=== PATIENT | female | born 1945 | race Caucasian/White ===

== ENCOUNTER → 2016-12-29 | Outpatient (CLI) | payer MEDICARE, BC ==
[2015-11-15 17:24] VITALS: BP 146/46
[~2016-12-29] MED LIST: ALBU8.5H6 IH; AMOX1TAB61 PO; CHOL100099 PO; CYCL1DRO OP; DESL5TAB PO; FLUT1DIS5 IH; HYDR-2762 PO; LEVO500T59 PO; LIDO700A4 TD; LISI-338 PO; METH2.5T PO; MILN100T PO; NEBI5TAB2 PO; PRAV80TA2 PO; PRED-220 PO; PREG150C PO; RABE20TA18 PO; XOPENEX0.63 MG/3 NEB; ZOLP10TA PO; trental PO
--- NOTE | 2016-12-29 14:52 | RAD ---
Chest, 2 views, 12/29/2016: History: Cough and congestion Comparison is made to a study from 08/17/2015. The heart size and pulmonary vascularity are normal. There is calcific plaquing of the aorta. There is a calcified granuloma in the right middle lobe. No pulmonary infiltrates are seen. There is no evidence of pleural fluid. IMPRESSION: No acute cardiopulmonary abnormality is detected.
== END | disposition home or self-care (01) ==
LOC: DXRADRC 14:06
PROVIDERS: ATTEND Family Medicine
DX: J06.9 Acute upper respiratory infection, unspecified (principal); R09.89 Other specified symptoms and signs involving the circulatory and respiratory systems
CPT/HCPCS: 71020

== ENCOUNTER 2017-01-05 14:41 | Emergency (ER) | payer MEDICARE, BC ==
[2017-01-05] MEDS ORDERED: IV NORMAL SALINE 1,000ML 1,000 ML IV SCH (15:46)
--- NOTE | 2017-01-05 16:07 | PHYS DOC ---
General Chief Complaint: DIZZY/LIGHT HEADED Stated Complaint: DIZZY,WEAKNESS Time Seen by MD: 15:46 Source: patient, old records Exam Limitations: no limitations Problems: History of Present Illness Initial Comments Patient is a 71-year-old female who comes to the ED complaining of dizziness and weakness. Patient states that she was diagnosed by her primary care physician Dr. Jo with pneumonia on December 29. She states at that time her pulse ox was 88% on room air and that she refused inpatient admission on that day. She was sent home with prescriptions for prednisone, Tussionex, "an inhaler and an antibiotic." She cannot recall the name of the antibiotic but does state its a white oval "horse pill" that she takes once daily. I mentioned Levaquin she thinks that sounds familiar but is uncertain. Patient states that she continues to be weak and when she tries to stand and get up and active she feels unsteady and dizzy however her symptoms resolve almost instantaneously when patient sits or lies down. Patient feels she is dehydrated, states she's had decreased urination and history of hypovolemia in the past. She denies chest pain or trouble breathing nausea vomiting diaphoresis or arm or neck symptoms. States her breathing has improved greatly since she began treatment for pneumonia and she is very confused as to why she is so weak and dizzy when she gets up. No other focal neurologic deficits no vision changes no difficulty swallowing. ED vital signs: 98.6, 95, 22, 129/60, 96% room air Timing/Duration: 1 week, constant Severity: moderate Modifying Factors: worse with movement, improves with rest Associated Symptoms: cough, loss of appetite, malaise, weakness, other Allergies: Coded Allergies: shellfish derived (Verified Allergy, Intermediate, 09/15/14) Past Medical History Medical History: arthritis (rheumatoid), fibromyalgia, GERD, heart disease, high cholesterol, hypertension, vascular disease, other (anemia, COPD, fibromyalgia) Surgical History: coronary bypass surgery, other Family History Significant Family History: cancer, vascular disease Social History Smoker: quit greater than 1 year Alcohol: none Drugs: none Review of Systems Constitutional: denies chills, denies diaphoresis, denies fever, malaise, weakness Respiratory: see HPI Cardiovascular: denies chest pain, denies edema, denies palpitations, denies syncope Gastrointestinal: denies abdominal pain, denies diarrhea, denies nausea, denies vomiting Genitourinary: see HPI Musculoskeletal: denies back pain, denies joint swelling, denies neck pain Psychiatric/Neurological: see HPI, denies headache, denies numbness, denies paresthesia, denies seizure, denies tingling Physical Exam General Appearance: WD/WN, no apparent distress Eyes: bilateral eye normal inspection, bilateral eye PERRL, bilateral eye EOMI Ear, Nose, Throat: hearing grossly normal, normal ENT inspection, normal pharynx (dry mucous membranes) Neck: non-tender, supple Respiratory: other (faint wheeze bilaterally without localized rales or rhonchi , good air movement no respiratory distress chest is nontender.) Cardiovascular: normal peripheral pulses, regular rate, rhythm Gastrointestinal: normal bowel sounds, non tender, soft Back: no CVA tenderness, no vertebral tenderness Extremities: normal range of motion, non-tender, normal inspection Neurologic/Psychiatric: 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 Interpreted by me WBC 14.4, hemoglobin 10.5 normocytic, creatinine 1.4, BUN 27 (h/o anemia) 1714: Patient states she is feeling much better with IV hydration. I had her stand up and walk around in her exam room for a short time, she denied any dizziness or gait instability. Family members present state patients looking much better as well. She denies new or progressive symptoms and expresses agreement and understanding the treatment plan. Departure Time of Disposition: 17:15 Disposition: 01 HOME, SELF-CARE Diagnosis: hypovolemia, pneumonia NOS Condition: IMPROVED Patient Instructions: Dehydration, Adult, [id number] Additional Instructions: Rest, no strenuous activity. Request assistance when standing and walking for the next 24 hours. Aggressive hydration with Gatorade or water. Continue current medications. Follow-up with your doctor next week for recheck. Return to the ED with new or changing symptoms. CLARKE GUERRA DO Jan 05, 2017 16:07
[2017-01-05] MEDS ORDERED: IPRATRPIUM/ALBUTEROL 0.5/2.5MG 3 ML NEBU. NEB ONE (16:15)
[2017-01-05 16:22] LABS: BASO % 0 % (0-3); EOS # 0.2 x10^3/uL (0.0-0.7); EOS % 1 % (0-3); HEMATOCRIT 32.9 % (36.0-47.0); HEMOGLOBIN 10.5 g/dL (12.0-15.5); LYMPH % 14 % (24-48); MEAN CORPUSCULAR HEMOGLOBIN 26 pg (25-35); MEAN CORPUSCULAR HGB CONC 32 g/dL (31-37); MEAN CORPUSCULAR VOLUME 80 fL (79-100); MONO # 0.4 x10^3/uL (0.0-1.1); MONO % 3 % (0-9); NEUT # 11.9 x10^3uL (1.8-7.7); NEUT % 82 % (31-73); PLATELET COUNT 297 x10^3/uL (140-400); WHITE BLOOD COUNT 14.4 x10^3/uL (4.0-11.0)
[2017-01-05 16:52] LABS: CALCIUM 8.4 mg/dL (8.5-10.1); CREATININE 1.4 mg/dL (0.6-1.0); GFR 37.1; POTASSIUM 4.2 mmol/L (3.5-5.1)
[2017-01-05 17:58] VITALS: BP 178/46
[2017-01-05 22:40] LABS: ANISOCYTOSIS MOD; OVALOCYTES OCC; PLT ESTIMATE ADEQUATE (ADEQUATE); POLYCHROMASIA SLIGHT
--- NOTE | 2017-01-07 06:43 | EKG ---
[address] [address] Test Date: 2017-01-05 Test Time: 15:04:53 Pat Name: WALESKA DEL CASTILLO Department: Room: Gender: F Women'S Swim Coach: AMARIS : 1945 Requested By: CLARKE GUERRA Order Number: [id number] Reading MD: Loyd Lange Measurements Intervals [place] Rate: 93 P: 42 CA: 156 QRS: 10 QRSD: 72 T: 64 QT: 350 QTc: 438 Interpretive Statements SINUS RHYTHM QRS(T) CONTOUR ABNORMALITY CANNOT RULE OUT ANTEROSEPTAL MYOCARDIAL DAMAGE T ABNORMALITY IN HIGH LATERAL LEADS RI6.01 Unconfirmed report Compared to ECG 11/15/2015 15:20:46 T-wave abnormality now present Electronically Signed On 01-10-2017 9:33:01 CDT by Loyd Lange
== END 2017-01-05 18:05 | disposition home or self-care (01) ==
LOC: ER 14:41
DX: J18.9 Pneumonia, unspecified organism (principal); E86.1 Hypovolemia; M79.7 Fibromyalgia; M19.90 Unspecified osteoarthritis, unspecified site; K21.9 Gastro-esophageal reflux disease without esophagitis; E78.00 Pure hypercholesterolemia, unspecified; I11.9 Hypertensive heart disease without heart failure; Z86.2 Personal history of diseases of the blood and blood-forming organs and certain disorders involving the immune mechanism; Z95.1 Presence of aortocoronary bypass graft; Z91.013 Allergy to seafood
CPT/HCPCS: 36415; 80048; 83880; 84484; 85008; 85027; 94640; 96360; 99285; J7620; J7030

== ENCOUNTER → 2017-01-11 | Outpatient (CLI) | payer MEDICARE, BC ==
[2017-01-05 17:58] VITALS: BP 178/46
--- NOTE | 2017-01-11 12:07 | RAD ---
Chest, 2 views, 01/11/2017: History: Shortness of breath, recent pneumonia Comparison is made to a study from 12/29/2016. The heart size and pulmonary vascularity are normal. There is calcific plaquing of the aorta. Calcified granulomata are present in the lower chest bilaterally. No acute infiltrate is seen. There is no evidence of pleural fluid. IMPRESSION: No acute cardiopulmonary abnormality is detected.
== END | disposition home or self-care (01) ==
LOC: DXRADRC 11:38
PROVIDERS: ATTEND Family Medicine
DX: R06.02 Shortness of breath (principal); Z87.01 Personal history of pneumonia (recurrent)
CPT/HCPCS: 71020

== ENCOUNTER 2017-02-05 12:04 | Emergency (ER) | payer MEDICARE, BC ==
[~2017-02-05] VITALS: Ht 165.1 cm; Wt 88.5 kg
--- NOTE | 2017-02-05 12:24 | EKG ---
[address] [address] Test Date: 2017-02-05 Test Time: 12:21:20 Pat Name: WALESKA DEL CASTILLO Department: Room: Gender: F Patient Biller: : 1945 Requested By: CARMEN SPRAGUE Order Number: [id number] Reading MD: Measurements Intervals [place] Rate: 100 P: 43 ND: 150 QRS: 11 QRSD: 70 T: 33 QT: 350 QTc: 455 Interpretive Statements SINUS RHYTHM NON SPECIFIC T ABNORMALITY RI6.01 Unconfirmed report No previous ECG available for comparison
[2017-02-05 12:45] LABS: BASO # 0.1 x10^3/uL (0.0-0.2); BASO % 1 % (0-3); EOS # 0.1 x10^3/uL (0.0-0.7); EOS % 1 % (0-3); HEMATOCRIT 30.5 % (36.0-47.0); HEMOGLOBIN 9.6 g/dL (12.0-15.5); LYMPH # 1.7 x10^3/uL (1.0-4.8); LYMPH % 14 % (24-48); MEAN CORPUSCULAR HEMOGLOBIN 27 pg (25-35); MEAN CORPUSCULAR HGB CONC 31 g/dL (31-37); MEAN CORPUSCULAR VOLUME 87 fL (79-100); MONO # 0.7 x10^3/uL (0.0-1.1); MONO % 6 % (0-9); NEUT # 10.1 x10^3uL (1.8-7.7); NEUT % 79 % (31-73); PLATELET COUNT 335 x10^3/uL (140-400); RED BLOOD COUNT 3.52 x10^6/uL (3.50-5.40); RED CELL DISTRIBUTION WIDTH 25.8 % (11.5-14.5); WHITE BLOOD COUNT 12.7 x10^3/uL (4.0-11.0)
--- NOTE | 2017-02-05 13:03 | RAD ---
CT of the head without contrast, 02/05/2017: History: Syncope Comparison is made to a study from 11/15/2015. There is mild cerebral atrophy. The ventricles are mildly prominent on a compensatory basis. There is no shift of the midline structures. There is no evidence of acute intracranial hemorrhage or mass effect. IMPRESSION: No acute intracranial abnormality is detected with no significant change since 11/15/2015. PQRS Compliance Statement: One or more of the following individualized dose reduction techniques were utilized for this examination: 1. Automated exposure control 2. Adjustment of the mA and/or kV according to patient size 3. Use of iterative reconstruction technique
[2017-02-05 13:05] LABS: ALBUMIN 2.9 g/dL (3.4-5.0); ALBUMIN/GLOBULIN RATIO 0.8 (1.0-1.7); CALCIUM 8.6 mg/dL (8.5-10.1); CREATININE 1.5 mg/dL (0.6-1.0); GFR 34.2; POTASSIUM 3.8 mmol/L (3.5-5.1); TOTAL BILIRUBIN 0.2 mg/dL (0.2-1.0); TOTAL PROTEIN 6.7 g/dL (6.4-8.2)
[2017-02-05 13:12] LABS: PLT ESTIMATE ADEQUATE (ADEQUATE); POIKILOCYTOSIS SLIGHT; POLYCHROMASIA MOD
[2017-02-05 13:13] LABS: ANISOCYTOSIS MOD
[2017-02-05] MEDS ORDERED: DIPHTH,PERTUSS(ACELL),TET TOX 0.5 ML DISP.SYRIN. VAX IM ONE (13:45)
[2017-02-05 14:11] VITALS: BP 140/55
[2017-02-05] MEDS ORDERED: ONDA4TAB10 SL (14:24)
--- NOTE | 2017-02-05 14:26 | PHYS DOC ---
Past History Past Medical History: Other Past Surgical History: Other Smoking: Non-smoker, Quit Greater Than 1 Year Alcohol Use: None Drug Use: None Adult General Chief Complaint Chief Complaint: SYNCOPE HPI HPI Patient is a 71 year old female who presents with syncope. The patient states she was getting out of a vehicle just prior to arrival, after leaving a . She tried to stand, became lightheaded with nausea, tunnel vision, weakness. She reports losing consciousness & falling against the door of the car. No seizure activity, tongue biting, bowel/bladder incontinence. She feels better now. She denies chest pain, palpitations, shortness of breath, extremity numbness/weakness or pain, vomiting, diarrhea, hematochezia/melena. She reports skin tears to right forearm. Tetanus > 5 years ago. She has PE diagnosed about 1 month ago currently taking eliquis & reports compliance. Review of Systems Review of Systems Constitutional: Denies fever or chills, reports syncope. Eyes: Denies change in visual acuity HENT: Denies nasal congestion or sore throat Respiratory: Denies cough or shortness of breath Cardiovascular: Denies chest pain or edema GI: Denies abdominal pain, nausea, vomiting, bloody stools or diarrhea : Denies dysuria or hematuria Musculoskeletal: Denies back pain or joint pain Integument: Denies rash or skin lesions , reports skin tears. Neurologic: Denies headache, focal weakness or sensory changes Current Medications Current Medications Current Medications Medications (Trade) Dose Ordered Sig/Yoel Start Time Stop Time Status Last Admin Dose Admin Diphtheria/ Tetanus/Acell Pertussis (Boostrix) 0.5 ml ONCE ONCE 02/05/17 13:45 02/05/17 13:46 DC 02/05/17 13:41 0.5 ML Allergies Allergies Allergies Coded Allergies Type Severity Reaction Last Updated Verified shellfish derived Allergy Intermediate 02/05/17 Yes Physical Exam Physical Exam Constitutional: obese, no acute distress, non-toxic appearance. HENT: Normocephalic, atraumatic, bilateral external ears normal, oropharynx moist, nose normal. Eyes: PERRLA, EOMI, conjunctiva normal, no discharge. Neck: supple, no stridor. no midline c-spine tenderness Cardiovascular: RRR, no murmurs, no edema. Lungs & Thorax: LCTAB, no wheezing, no respiratory distress. Abdomen: soft, nontender, nondistended. Skin: Warm, dry, no erythema, no rash. skin tears right forearm. Back: No spinal tenderness. Extremities: No tenderness, no edema. no calf tenderness or swelling. Neurologic: Alert and oriented X 3, CN2-12 grossly intact, symmetric strength/ sensation to UE & LE, no focal deficits noted. Psychologic: Affect normal, judgement normal, mood normal. Current Patient Data Vital Signs Vital Signs Date Time Temp Pulse Resp B/P (MAP) Pulse Ox O2 Delivery O2 Flow Rate FiO2 02/05/17 13:41 90 140/55 (83) 92 Room Air 02/05/17 13:15 17 02/05/17 12:30 98.2 Lab Results Laboratory Tests Test 02/05/17 12:33 White Blood Count 12.7 x10^3/uL (4.0-11.0) H Red Blood Count 3.52 x10^6/uL (3.50-5.40) Hemoglobin 9.6 g/dL (12.0-15.5) L Hematocrit 30.5 % (36.0-47.0) L Mean Corpuscular Volume 87 fL (79-100) Mean Corpuscular Hemoglobin 27 pg (25-35) Mean Corpuscular Hemoglobin Concent 31 g/dL (31-37) Red Cell Distribution Width 25.8 % (11.5-14.5) H Platelet Count 335 x10^3/uL (140-400) Neutrophils (%) (Auto) 79 % (31-73) H Lymphocytes (%) (Auto) 14 % (24-48) L Monocytes (%) (Auto) 6 % (0-9) Eosinophils (%) (Auto) 1 % (0-3) Basophils (%) (Auto) 1 % (0-3) Neutrophils # (Auto) 10.1 x10^3uL (1.8-7.7) H Lymphocytes # (Auto) 1.7 x10^3/uL (1.0-4.8) Monocytes # (Auto) 0.7 x10^3/uL (0.0-1.1) Eosinophils # (Auto) 0.1 x10^3/uL (0.0-0.7) Basophils # (Auto) 0.1 x10^3/uL (0.0-0.2) Platelet Estimate Adequate (ADEQUATE) Polychromasia Mod Poikilocytosis Slight Anisocytosis Mod Prothrombin Time 10.7 SEC (9.4-11.4) Prothrombin Time INR 1.0 (0.9-1.1) Sodium Level 139 mmol/L (136-145) Potassium Level 3.8 mmol/L (3.5-5.1) Chloride Level 102 mmol/L (98-107) Carbon Dioxide Level 27 mmol/L (21-32) Anion Gap 10 (6-14) Blood Urea Nitrogen 17 mg/dL (7-20) Creatinine 1.5 mg/dL (0.6-1.0) H Estimated GFR (Cockcroft-Gault) 34.2 BUN/Creatinine Ratio 11 (6-20) Glucose Level 104 mg/dL (70-99) H Calcium Level 8.6 mg/dL (8.5-10.1) Total Bilirubin 0.2 mg/dL (0.2-1.0) Aspartate Amino Transferase (AST) 19 U/L (15-37) Alanine Aminotransferase (ALT) 19 U/L (14-59) Alkaline Phosphatase 128 U/L (46-116) H Troponin I Quantitative < 0.017 ng/mL (0-0.055) RI-Hdg-I-Type Natriuretic Peptide 831 pg/mL (0-124) H Total Protein 6.7 g/dL (6.4-8.2) Albumin 2.9 g/dL (3.4-5.0) L Albumin/Globulin Ratio 0.8 (1.0-1.7) L EKG EKG Interpreted by me: Normal sinus rhythm rate 100, no acute ST or T wave changes, normal intervals, no ectopy. [] Radiology/Procedures Radiology/Procedures PROCEDURE: CT HEAD WO CONTRAST CT of the head without contrast, 02/05/2017: History: Syncope Comparison is made to a study from 11/15/2015. There is mild cerebral atrophy. The ventricles are mildly prominent on a compensatory basis. There is no shift of the midline structures. There is no evidence of acute intracranial hemorrhage or mass effect. IMPRESSION: No acute intracranial abnormality is detected with no significant change since 11/15/2015. PQRS Compliance Statement: One or more of the following individualized dose reduction techniques were utilized for this examination: 1. Automated exposure control 2. Adjustment of the mA and/or kV according to patient size 3. Use of iterative reconstruction technique DICTATED AND SIGNED BY: GARRETT RODRIGUEZ MD DATE: 02/05/17 9588 [] Course & Med Decision Making Course & Med Decision Making Pertinent Labs and Imaging studies reviewed. (See chart for details) The patient presents with syncope. She is well appearing, stable vitals, initially with mild tachycardia which resolved, not hypoxic, no complaints. Wound care by RN with dressing applied to skin tears. CT unremarkable, labs as above. She is anemic but Hgb actually improved from 01/15 when it was 8.8. She denies any bleeding at this time. She felt well & requested discharge home. I did discuss briefly with Dr. Mcclelland, will not obtain repeat imaging to assess extent of PE as she has no symptoms such as chest pain or shortness of breath today & is compliant with anticoagulation regimen. She was able to ambulate with steady gait. Her family is present & comfortable with plan for discharge. Recommend rest, PO hydration, regular meals, stand slowly from sitting, follow up with PCP in 2 days. Return to the ED for recurrent syncope, chest pain, shortness of breath, focal neuro deficit, any otherwise worsening condition. Discharged home in stable condition. Note: I did not prescribe norco for this patient. Was attempting to demonstrate a printer problem while troubleshooting with IT, added a medication to demonstrate, & am now unable to delete the prescription. She was only given zofran. [] Dragon Disclaimer Dragon Disclaimer This chart was dictated in whole or in part using Voice Recognition software in a busy, high-work load, and often noisy Emergency Department environment. It may contain unintended and wholly unrecognized errors or omissions. Departure Departure: Impression: Primary Impression: Syncope Disposition: HOME, SELF-CARE Condition: STABLE Referrals: MOHAMUD CAMPBELL MD (PCP) Patient Instructions: Syncope, [id number] Additional Instructions: You were seen in the emergency department today for fainting (syncope). Your tests here did not show a serious cause of symptoms. Please rest, drink fluids , eat regular meals, stand slowly from sitting. Keep wounds clean & dry & cover with a bandage for comfort. Follow up with primary care physician in 2 days. Come back for recurrent syncope, chest pain, shortness of breath, any otherwise worsening condition. Scripts Hydrocodone Bit/Acetaminophen (NORCO 5-325 TABLET) 1 Each Tablet 1-2 TAB PO Q4-6HRS Y for SEVERE PAIN, #10 TAB Prov: CARMEN SPRAGUE MD 02/06/17 Ondansetron (ZOFRAN ODT) 4 Mg Tab.rapdis 1 TAB SL Q8HRS, #10 TAB Prov: CARMEN SPRAGUE MD 02/05/17 CARMEN SPRAGUE MD Feb 05, 2017 14:26
[2017-02-06] MEDS ORDERED: HYDR-971 PO (09:03)
== END 2017-02-05 14:36 | disposition home or self-care (01) ==
LOC: ER 12:04
DX: R55 Syncope and collapse (principal); S51.811A Laceration without foreign body of right forearm, initial encounter; Z87.891 Personal history of nicotine dependence; Z91.013 Allergy to seafood; X58.XXXA Exposure to other specified factors, initial encounter; Y93.89 Activity, other specified; Y99.8 Other external cause status; Y92.89 Other specified places as the place of occurrence of the external cause
CPT/HCPCS: 36415; 70450; 80053; 83880; 84484; 85008; 85027; 85610; 90471; 90715; 93005; 99285-25

== ENCOUNTER 2019-04-07 07:02 | Emergency (ER) | payer MEDICARE, BC ==
[~2019-04-07 07:02] MED LIST changes: -HYDR-2762 PO; +HYDR-2765 PO; +HYDR-3165 PO; +ONDA4TAB10 SL
[2019-04-07 07:40] VITALS: BP 206/96
[2019-04-07 07:53] LABS: BACTERIA,URINE FEW /HPF (0-FEW); BILIRUBIN,URINE NEG (NEG); CLARITY,URINE HAZY; COLOR,URINE YELLOW; GLUCOSE,URINE NEG (NEG); HYALINE CASTS, URINE OCC /HPF; NITRITE,URINE NEG (NEG); RBC,URINE OCC /HPF (0-2); SQUAMOUS EPITHELIAL CELL,UR OCC /LPF; UROBILINOGEN,URINE 0.2 mg/dL (0.2 mg/dL)
--- NOTE | 2019-04-07 07:58 | PHYS DOC ---
Past History Past Medical History: Arthritis, CAD, COPD, High Cholesterol, Hypertension Past Surgical History: Other Smoking: Non-smoker, Quit Greater Than 1 Year Alcohol Use: None Drug Use: None Adult General Chief Complaint Chief Complaint: LOWER BACK PAIN OR INJURY HPI HPI 73-year-old female presents with right flank pain. The patient started to have pain 2 days ago just below her bra line on the right side that radiates around the front. She describes it as a pressure feeling. It seems like it's Worse the last couple of days so she became concerned. She denies any trauma or falls. She can't think of any reason why would be hurting. She denies dysuria or urinary frequency. She has had shingles in the past. There is no sign of rash in this area. The patient also has a history of aortofemoral bypass. She denies overt chest pain, shortness of breath, cough, diaphoresis, fever, or chills. She has a history of COPD but is not having any difficulty breathing. Review of Systems Review of Systems Constitutional: Denies fever or chills [] Eyes: Denies change in visual acuity, redness, or eye pain [] HENT: Denies nasal congestion or sore throat [] Respiratory: Denies cough or shortness of breath [] Cardiovascular: No additional information not addressed in HPI [] GI: Denies abdominal pain, nausea, vomiting, bloody stools or diarrhea [] : Denies dysuria or hematuria [] Musculoskeletal: Right flank pain. [] Integument: Denies rash or skin lesions [] Neurologic: Denies headache, focal weakness or sensory changes [] Endocrine: Denies polyuria or polydipsia [] All other systems were reviewed and found to be within normal limits, except as documented in this note. Allergies Allergies Allergies Coded Allergies Type Severity Reaction Last Updated Verified shellfish derived Allergy Intermediate 02/05/17 Yes Physical Exam Physical Exam Constitutional: Well developed, well nourished, no acute distress, non-toxic appearance. [] HENT: Normocephalic, atraumatic, bilateral external ears normal, oropharynx moist, no oral exudates, nose normal. [] Eyes: PERRLA, EOMI, conjunctiva normal, no discharge. [] Neck: Normal range of motion, no tenderness, supple, no stridor. [] Cardiovascular:Heart rate regular rhythm, no murmur [] Lungs & Thorax: Bilateral breath sounds clear to auscultation. Mild tenderness of right lateral chest wall. [] Abdomen: Bowel sounds normal, soft, no tenderness, no masses, no pulsatile masses. [] Skin: Warm, dry, no erythema, no rash. [] Back: No tenderness, no CVA tenderness. [] Extremities: No tenderness, no cyanosis, no clubbing, ROM intact, no edema. [] Neurologic: Alert and oriented X 3, normal motor function, normal sensory function, no focal deficits noted. [] Psychologic: Affect normal, judgement normal, mood normal. [] Current Patient Data Vital Signs Vital Signs Date Time Temp Pulse Resp B/P (MAP) Pulse Ox O2 Delivery O2 Flow Rate FiO2 04/07/19 07:40 98.7 116 18 99 Room Air EKG EKG Sinus rhythm, rate 100, normal axis, no ST elevation or depression.[] Radiology/Procedures Radiology/Procedures [] Impressions: CHEST PA LATERAL History: Chest pain. COMPARISON: January 11, 2017 image without report FINDINGS: Cardiomediastinal silhouette unchanged and within normal limits as is aortic calcification and tortuosity. No evidence of pneumothorax, pleural effusion or focal infiltrate. Evidence of granulomatous calcification again seen. IMPRESSION: No evidence of acute radiographic finding. Electronically signed by: Annalisa Vegas MD (04/07/2019 8:03 AM) [facility] DICTATED AND SIGNED BY: ANNALISA VEGAS MD DATE: 04/07/19 0803 CC: ILYA MILTON DO; PCP,NO ~ Course & Med Decision Making Course & Med Decision Making Pertinent Labs and Imaging studies reviewed. (See chart for details) The patient's EKG is unremarkable. Her chest x-rays negative for acute findings. Her labs are unremarkable. Her troponin is negative. Her urinalysis equivocal, but she is not complaining of symptoms will not treat for UTI. I'm unsure why the patient is having right-sided flank pain. It does not appear to be cardiopulmonary or life-threatening. This is likely musculoskeletal discomfort. She will take ibuprofen and tylenol for pain. She is stable for discharge at this time. [] Dragon Disclaimer Dragon Disclaimer This electronic medical record was generated, in whole or in part, using a voice recognition dictation system. Departure Departure: Impression: Primary Impression: Chest wall pain Disposition: HOME, SELF-CARE Condition: STABLE Referrals: PCP,NO (PCP) Patient Instructions: Chest Wall Pain, [id number] ILYA MILTON DO Apr 07, 2019 07:58
--- NOTE | 2019-04-07 08:06 | RAD ---
CHEST PA LATERAL History: Chest pain. COMPARISON: January 11, 2017 image without report FINDINGS: Cardiomediastinal silhouette unchanged and within normal limits as is aortic calcification and tortuosity. No evidence of pneumothorax, pleural effusion or focal infiltrate. Evidence of granulomatous calcification again seen. IMPRESSION: No evidence of acute radiographic finding. Electronically signed by: Esau Vegas MD (04/07/2019 8:03 AM) [facility]
[2019-04-07 08:29] LABS: BASO # 0.1 x10^3/uL (0.0-0.2); BASO % 1 % (0-3); EOS # 0.1 x10^3/uL (0.0-0.7); EOS % 1 % (0-3); LYMPH % 8 % (24-48); MEAN CORPUSCULAR HEMOGLOBIN 29 pg (25-35); MEAN CORPUSCULAR HGB CONC 33 g/dL (31-37); MEAN CORPUSCULAR VOLUME 90 fL (79-100); MONO # 0.7 x10^3/uL (0.0-1.1); MONO % 5 % (0-9); NEUT # 11.2 x10^3uL (1.8-7.7); NEUT % 85 % (31-73); PLATELET COUNT 386 x10^3/uL (140-400); RED BLOOD COUNT 4.77 x10^6/uL (3.50-5.40); RED CELL DISTRIBUTION WIDTH 21.8 % (11.5-14.5); WHITE BLOOD COUNT 13.1 x10^3/uL (4.0-11.0)
[2019-04-07 08:35] LABS: ALBUMIN 3.7 g/dL (3.4-5.0); ALBUMIN/GLOBULIN RATIO 1.1 (1.0-1.7); CALCIUM 9.3 mg/dL (8.5-10.1); CREATININE 1.1 mg/dL (0.6-1.0); GFR 48.7; POTASSIUM 4.6 mmol/L (3.5-5.1); TOTAL BILIRUBIN 0.3 mg/dL (0.2-1.0); TOTAL PROTEIN 7.2 g/dL (6.4-8.2)
--- NOTE | 2019-04-07 08:46 | EKG ---
[address] [address] Test Date: 2019-04-07 Test Time: 07:58:36 Pat Name: WALESKA DEL CASTILLO Department: Room: Gender: F Horse Rider: : 1945 Requested By: ILYA MILTON Order Number: [id number] Reading MD: Measurements Intervals [place] Rate: 100 P: 50 [place]: 144 QRS: 13 QRSD: 68 T: 62 QT: 346 QTc: 449 Interpretive Statements SINUS RHYTHM QRS(T) CONTOUR ABNORMALITY CONSIDER ANTEROSEPTAL MYOCARDIAL DAMAGE POSSIBLY ABNORMAL ECG RI6.01 No previous ECG available for comparison
[2019-04-07 09:02] LABS: ANISOCYTOSIS SLIGHT; PLT ESTIMATE ADEQUATE (ADEQUATE)
== END 2019-04-07 09:11 | disposition home or self-care (01) ==
LOC: ER 07:02
DX: R07.89 Other chest pain (principal); M19.90 Unspecified osteoarthritis, unspecified site; J44.9 Chronic obstructive pulmonary disease, unspecified; I25.10 Atherosclerotic heart disease of native coronary artery without angina pectoris; E78.00 Pure hypercholesterolemia, unspecified; I10 Essential (primary) hypertension; Z87.891 Personal history of nicotine dependence; Z91.013 Allergy to seafood
CPT/HCPCS: 36415; 71046; 80053; 81001; 84484; 85025; 87086; 93005; 99285